=== PATIENT | female | born 1960 | race Caucasian/White ===

== ENCOUNTER 2018-03-29 17:25 | Emergency (ER) | payer OTHER ==
[2018-03-29] MEDS ORDERED: Ibuprofen TAB* 400 MG PO ONE (17:59)
--- NOTE | 2018-03-29 18:10 | UC ---
Throat Pain/Nasal Renzo HPI - HPI Summary HPI Summary: 57 y/o female presents to the urgent care c/o sore throat, fever, body aches, dry cough since 03/25/2018. Pt reports symptoms started w/ the common cold and then sore throat w/ fever developed yesterday. RT ear pain, LUTZ and body aches is 7/10. This morning she had fever of 102F associated w/ Rt ear pain. Pt has been taking Tylenol sinus cold and flu to alleviate symptoms. She had fever of Pt denies SOB, wheezing, chest pain, rash, neck pain, abdominal pain, N/V/D. Pt didn't get the flu vaccine this year. - History of Current Complaint Chief Complaint: UCRespiratory Stated Complaint: RESP COMPLAINT Time Seen by Provider: 03/29/18 17:59 Hx Obtained From: Patient Onset/Duration: Gradual Onset, Lasting Days - 3 days, Still Present, Worse Since - today Severity: Moderate Pain Intensity: 7 Pain Scale Used: 0-10 Numeric Cough: Nonproductive Associated Signs & Symptoms: Positive: Sinus Discomfort, Nasal Discharge - yellowish, Fever - Epiglottits Risk Factors Epiglottis Risk Factors: Negative - Allergies/Home Medications Allergies/Adverse Reactions: Allergies Allergy/AdvReac Type Severity Reaction Status Date / Time Penicillins Allergy Intermediate Rash Verified 03/29/18 17:54 Home Medications: Home Medications Glucosam Sul Na/Chondr [Optiflex Complete Combo Pack] 1 mis PO DAILY 03/29/18 [ History Confirmed 03/29/18] Multivitamin [Multivitamins] 1 cap PO DAILY 03/29/18 [History Confirmed 03/29/18 ] Vitamin B Complex CAP* [B Complex CAP*] 1 cap PO DAILY 03/29/18 [History Confirmed 03/29/18] PMH/Surg Hx/FS Hx/Imm Hx Previously Healthy: Yes Psychological History: Anxiety, Depression - Surgical History Surgical History: Yes Surgery Procedure, Year, and Place: c-sections x2. gallbladder. knee scope/ left - Family History Known Family History: Positive: Hypertension - Social History Occupation: Employed Full-time Lives: With Family Alcohol Use: Occasionally Substance Use Type: None Smoking Status (MU): Never Smoked Tobacco Review of Systems All Other Systems Reviewed And Are Negative: Yes Constitutional: Positive: Fever, Chills, Other - body aches Eyes: Positive: Negative ENT: Positive: Sore Throat, Ear Ache - Rt ear pain, Nasal Discharge - clear, Sinus Congestion Respiratory: Positive: Cough - dry Cardiovascular: Positive: Negative Gastrointestinal: Positive: Negative Genitourinary: Positive: Negative Motor: Positive: Negative Neurovascular: Positive: Negative Musculoskeletal: Positive: Myalgia Neurological: Positive: Headache Psychological: Positive: Negative Is Patient Immunocompromised?: No Physical Exam - Summary Physical Exam Summary: VITAL SIGNS: Reviewed. GENERAL: Patient is a well developed and nourished who is sitting comfortable in the examining table. Patient is not in any acute respiratory distress. HEAD AND FACE: No signs of trauma. No ecchymosis, hematomas or skull depressions. No sinus tenderness. EYES: PERRLA, EOMI x 2, No injected conjunctiva, no nystagmus. No photophobia. EARS: Hearing grossly intact. RT external ear canal clear, Rt TM injected w/ erythema and yellowish discharge, LF external ear canal clear and LF TM WNL.. MOUTH: Positive pharynx with erythema, exudates, palatal petechiae. B/L tonsillar enlargement with exudate. Uvula in midline. +PND yellowish NECK: Supple, trachea is midline, Positive anterior cervical lymphadenopathy, no JVD, no carotid bruit, no c-spine tenderness, neck with full ROM. No meningeal signs, no Kernig's or brudzinskis signs. CHEST: Symmetric, no tenderness at palpation LUNGS: Clear to auscultation bilaterally. No wheezing or crackles. CVS: Regular rate and rhythm, S1 and S2 present, no murmurs or gallops appreciated. ABDOMEN: Soft, non-tender. No signs of distention. No rebound no guarding, and no masses palpated. Bowel sounds are normal. EXTREMITIES: FROM in all major joints, no edema, no cyanosis or clubbing. NEURO: Alert and oriented x 3. No acute neurological deficits. Speech is normal and follows commands. SKIN: Dry and warm Triage Information Reviewed: Yes Vital Signs: Initial Vital Signs Temp 102.9 F 03/29/18 17:47 Pulse 102 03/29/18 17:47 Resp 20 03/29/18 17:47 BP 155/86 03/29/18 17:47 Pulse Ox 97 03/29/18 17:47 Throat Pain/Nasal Course/Dx - Course Course Of Treatment: 57 y/o female presents to the urgent care c/o sore throat, fever, body aches, dry cough since 03/25/2018. Pt reports symptoms started w/ the common cold and then sore throat w/ fever developed yesterday. RT ear pain, LUTZ and body aches is 7/10. This morning she had fever of 102F associated w/ Rt ear pain. Pt has been taking Tylenol sinus cold and flu to alleviate symptoms. She had fever of Pt denies SOB, wheezing, chest pain, rash, neck pain, abdominal pain, N/V/D. Pt didn't get the flu vaccine this year. Hx obtained. Pt w/ URI and RT otitis media on examination. Rapid strep: negative, Rapid Influenza A&B: negative. Pt PCN allergic. Pt Rx Doxyxycline PO and Ibuprofen PO as directed below to alleviate symptoms. Pt given Ibuprofen PO at the clinic for fever by the nurse. Pt tolerated well medication and felt better. PT Advised on hand washing. Pt advised to rest, increase fluid intake, eat well and avoid strenuous exercise. If symptoms do not improve or worsen advised to return to the urgent care or f/u with her PCP for further evaluation and treatment. Pt's BP is elevated today advised to decrease salt in diet, monitor BP and f/u with PCP for further management. Pt understood and agreed with plan of care. - Differential Dx/Diagnosis Differential Diagnosis/HQI/PQRI: Influenza, Laryngitis, Otitis Media, Pharyngitis, Sinusitis, URI Provider Diagnosis: Upper respiratory infection, acute, Otitis media of right ear Discharge - Sign-Out/Discharge Documenting (check all that apply): Patient Departure - d/c home All imaging exams completed and their final reports reviewed: No Studies - Discharge Plan Condition: Stable Disposition: HOME Prescriptions: DOXYcycline CAP(*) [DOXYcycline 100MG CAP(*)] 100 mg PO BID #14 cap Ibuprofen TAB* [Motrin TAB* 600 MG] 600 mg PO Q6H PRN #30 tab PRN Reason: Pain Patient Education Materials: Ear Infection (ED), Upper Respiratory Infection ( ED) Forms: *Work Release Referrals: Fabiola Chavez MD [Primary Care Provider] - 3 Days Additional Instructions: 1- Please take the full course of the antibiotic to avoid resistance. 2-Please take ibuprofen PO q6-8hrs prn as instructed after meals to alleviate pain and swelling. Increase fluid intake, eat well, rest and avoid strenuous exercise 3-If symptoms do not improve or worsen please return to the urgent care or f/u with your PCP in 3 days for further evaluation and treatment. 4-Your BP is elevated today. please decrease salt in your diet, monitor BP and if it continues to be elevated please f/u with your PCP for further management - Billing Disposition and Condition Condition: STABLE Disposition: Home
== END 2018-03-29 19:01 | disposition home or self-care (01) ==
LOC: UCEAST 17:25
DX: J06.9 Acute upper respiratory infection, unspecified (principal); H66.91 Otitis media, unspecified, right ear; Z88.0 Allergy status to penicillin
CPT/HCPCS: 87651; 99212; A9270-GY; G0463